=== PATIENT | female | born 1970 | race Caucasian/White ===

== ENCOUNTER 2018-10-04 22:53 | Emergency (ER) | payer OTHER ==
[2018-10-04 22:59] VITALS: BP 168/100; PULSE 90; TEMP 98; BMI 26.9
--- NOTE | 2018-10-04 23:12 | PDOC ---
History of Present Illness - General Chief Complaint: Headache Stated Complaint: SHARP PAIN BEHIND HEAD Time Seen by Provider: 10/04/18 23:05 - History of Present Illness Initial Comments: 48 year old female with no PMH but does have PCP follow up presenting with sudden onset headache at 11:00 AM today which self resolved then came back at 21 :00 today. She did not take any medication. Describes the headache as sharp, posterior occipital, non-radiating and slightly worse with bright light and loud sound. She does not have history of headache or migraines. Denies nausea, vomiting, diarrhea, fevers, chills or other symptoms. 10/05/18 00:09 Past History - Past Medical History Allergies/Adverse Reactions: Allergies Allergy/AdvReac Type Severity Reaction Status Date / Time No Known Allergies Allergy Verified 10/04/18 23:00 Home Medications: Ambulatory Orders Ibuprofen [Ibu] 600 mg PO Q4HWA PRN 10 Days #30 tablet 10/05/18 Asthma: Yes COPD: No - Surgical History Abdominal Surgery: Yes (abdominal plasty) Cholecystectomy: Yes - Suicide/Smoking/Psychosocial Hx Smoking Status: No Smoking History: Never smoked Have you smoked in the past 12 months: No Number of Cigarettes Smoked Daily: 5 Information on smoking cessation initiated: No Hx Alcohol Use: No Drug/Substance Use Hx: No Substance Use Type: None Review of Systems - Review of Systems Constitutional: No: Chills, Diaphoresis, Fever HEENTM: No: Eye Pain, Blurred Vision Respiratory: No: Cough, Orthopnea, Shortness of Breath Cardiac (ROS): No: Chest Pain, Edema ABD/GI: No: Diarrhea, Nausea, Vomiting : No: Burning, Dysuria, Discharge, Incontinence Musculoskeletal: No: Joint Swelling, Muscle Pain Integumentary: No: Bruising, Change in Color, Erythema Neurological: No: Headache, Numbness, Paresthesia Psychiatric: No: Anxiety, Depression Hematologic/Lymphatic: No: Anemia, Blood Clots, Easy Bleeding *Physical Exam - Vital Signs Last Vital Signs Temp Pulse Resp BP Pulse Ox 98.0 F 90 16 168/100 100 10/04/18 22:57 10/04/18 22:57 10/04/18 22:57 10/04/18 22:57 10/04/18 22:57 - Physical Exam General Appearance: Yes: Nourished, Appropriately Dressed. No: Apparent Distress HEENT: positive: EOMI, NOEMI, Normal ENT Inspection. negative: Normal Voice Neck: positive: Trachea midline, Normal Thyroid, Supple. negative: Tender, Rigid Respiratory/Chest: positive: Lungs Clear, Normal Breath Sounds. negative: Chest Tender, Respiratory Distress, Accessory Muscle Use Cardiovascular: positive: Regular Rhythm, Regular Rate Gastrointestinal/Abdominal: positive: Normal Bowel Sounds, Flat, Soft. negative : Tender Lymphatic: negative: Adenopathy, Tenderness Extremity: positive: Normal Capillary Refill, Normal Inspection, Normal Range of Motion. negative: Tender Integumentary: positive: Normal Color, Dry, Warm Neurologic: positive: Fully Oriented, Alert, Normal Mood/Affect, Normal Response , Motor Strength 5/5 Moderate Sedation - Procedure Monitoring Vital Signs: Procedure Monitoring Vital Signs Temperature 98.0 F 10/04/18 22:57 Pulse Rate 90 10/04/18 22:57 Respiratory Rate 16 10/04/18 22:57 Blood Pressure 168/100 10/04/18 22:57 O2 Sat by Pulse Oximetry (%) 100 10/04/18 22:57 ED Treatment Course - LABORATORY CBC & Chemistry Diagram: 10/05/18 01:22 10/05/18 01:22 Medical Decision Making - Medical Decision Making 48 year old female worsening with severe headache that resolved on its own but returned suddenly this evening. Patient's headache improved with Reglan, NS, and ofirmev. Head CT negative. Will DC with ibuprofen 600 every 4-6 hour usage instructions and neurologist follow up if the headaches returned. 10/05/18 02:35 *DC/Admit/Observation/Transfer Diagnosis at time of Disposition: Headache Qualifiers: Headache type: unspecified Headache chronicity pattern: acute headache Intractability: not intractable Qualified Code(s): R51 - Headache - Discharge Dispostion Disposition: HOME Condition at time of disposition: Improved Decision to Admit order: No - Prescriptions Prescriptions: Ibuprofen [Ibu] 600 mg PO Q4HWA PRN 10 Days #30 tablet PRN Reason: headache - Referrals Referrals: Chris Hwang MD [Primary Care Provider] - - Patient Instructions Additional Instructions: Por favor cele un seguimiento en el [facility] para el dolor abdominal. Direccin: [address] [place] [address] [place], [place] [id number]. Telfono: para hacer kvng chencho con los mdicos peditricos especializados en estmago. Por favor usa el Pepcid en casa. Regrese a la jona de emergencias si tiene sntomas nuevos o que empeoran. - Post Discharge Activity
[2018-10-04] MEDS ORDERED: ACETAMINOPHEN 1000 MG/100 ML VIAL (NON FORMULARY) IVPB ONE (23:14)
[2018-10-05] MEDS ORDERED: METOCLOPRAMIDE HCL INJECTION 10 MG/2 ML VIAL IVPB ONE (00:35)
[2018-10-05] MEDS ORDERED: SODIUM CHLORIDE 1,000 ML IV STA (00:35)
--- NOTE | 2018-10-05 01:10 | PDOC ---
Attending Attestation - Resident Resident Name: Misael Nichols - ED Attending Attestation I have performed the following: I have examined & evaluated the patient, The case was reviewed & discussed with the resident, I agree w/resident's findings & plan, Exceptions are as noted - HPI HPI: 10/05/18 01:08 The patient is a 48 year old female, with a significant PMH of asthma, who presents to the emergency department with intermittent headache x 1 day. The patient states the headache began this morning at 11 am. Pt reports experiencing a sharp pain in the back of her head that resolved on its own approx 45 minutes later. She felt fine the rest of the day until tonight. The patient states the headache returned 40 minutes ago. Denies thunderclap. Denies N/V. Denies neck pain. The patient denies chest pain, shortness of breath and dizziness. Denies fever, chills, nausea, vomit, diarrhea and constipation. Denies dysuria, frequency, urgency and hematuria. Allergies: NKA - Physicial Exam PE: 10/05/18 01:10 GENERAL: Awake, alert, and fully oriented, in no acute distress. HEAD: No signs of trauma EYES: PERRLA, EOMI, sclera anicteric, conjunctiva clear ENT: Auricles normal inspection, hearing grossly normal, nares patent, oropharynx clear without exudates. Moist mucosa NECK: Nontender, no stepoffs, Normal ROM, supple, no lymphadenopathy, JVD, or masses LUNGS: Breath sounds equal, clear to auscultation bilaterally. No wheezes, and no crackles HEART: Regular rate and rhythm, normal S1 and S2, no murmurs, rubs or gallops ABDOMEN: Soft, nontender, normoactive bowel sounds. No guarding, no rebound. No masses EXTREMITIES: Normal range of motion, no edema. No clubbing or cyanosis. No cords, erythema, or tenderness NEUROLOGICAL: Cranial nerves II through XII intact. 5/5 strength and sensation in all extremities, Normal speech, normal gait, normal cerebellar function SKIN: Warm, Dry, normal turgor, no rashes or lesions noted. - Medical Decision Making 10/05/18 01:10 48 F with intermittent WRIGHT x 1 day. No thunderclap to suggest SAH. No fevers or other infectious symptoms to suggest meningitis. Pt with no neuro deficits. Suspect tension vs migraine headache. - CT head - Labs - IVF, tylenol, reglan - Reassess Labs wnl CT head negative Pt reassessed after meds, now with complete resolution of headache. Neuro exam continues to be normal
[2018-10-05] MEDS ORDERED: METOCLOPRAMIDE HCL INJECTION 10 MG/2 ML VIAL ONE (01:31)
[2018-10-05] MEDS ORDERED: ACETAMINOPHEN INJECTION 100 ML IVPB ONE (01:31)
[2018-10-05 01:53] LABS: BASO % 0.2 % (0-2.0); EOS % 1.8 % (0-4.5); HEMATOCRIT 39.9 % (32.4-45.2); HEMOGLOBIN 13.7 GM/dL (10.7-15.3); MCH 29.8 pg (25.7-33.7); MCHC 34.4 g/dl (32.0-36.0); MEAN CELL VOLUME 86.5 fl (80-96); MEAN PLT VOLUME 9.5 fl (7.5-11.1); MONO % 5.4 % (3.8-10.2); NEUT % 58.6 % (42.8-82.8); PLATELET COUNT 204 K/MM3 (134-434); RBC 4.62 M/mm3 (3.60-5.2); RDW 13.7 % (11.6-15.6); WHITE BLOOD COUNT 10.9 K/mm3 (4.0-10.0)
[2018-10-05 02:06] LABS: INR 0.94 (0.83-1.09); PROTHROMBIN TIME (PATIENT) 11.1 SEC (9.7-13.0)
[2018-10-05 03:00] LABS: ALBUMIN 3.9 g/dl (3.4-5.0); ALK PHOS 51 U/L (45-117); ANION GAP 5 MMOL/L (8-16); BILIRUBIN,TOTAL 0.3 mg/dL (0.2-1); BLOOD UREA NITROGEN 16 mg/dL (7-18); CHLORIDE 107 mmol/L (98-107); CO2 27 mmol/L (21-32); CREATININE 0.8 mg/dL (0.55-1.3); GLUCOSE,RANDOM 90 mg/dL (74-106); MAGNESIUM 2.1 mg/dL (1.8-2.4); PHOSPHOROUS 3.4 mg/dL (2.5-4.9); POTASSIUM 4.3 mmol/L (3.5-5.1); SGOT/AST 29 U/L (15-37); SGPT/ALT 25 U/L (13-61); SODIUM 139 mmol/L (136-145); TOT PROT 7.1 g/dl (6.4-8.2)
== END 2018-10-05 03:36 | disposition home or self-care (01) ==
LOC: JER 22:53
PROC: 3E0337Z Introduction of Electrolytic and Water Balance Substance into Peripheral Vein, Percutaneous Approach (ICD-10-PCS; principal; 2018-10-04)
PROC: 3E033NZ Introduction of Analgesics, Hypnotics, Sedatives into Peripheral Vein, Percutaneous Approach (ICD-10-PCS; 2018-10-04)
PROC: 3E033GC Introduction of Other Therapeutic Substance into Peripheral Vein, Percutaneous Approach (ICD-10-PCS; 2018-10-04)
DX: R51 Headache (principal)
CPT/HCPCS: 36415; 70450-TC; 80053; 83735; 84100; 85025; 85610; 99282-25; J0131; J7030